=== PATIENT | female | born 1990 | race Caucasian/White ===

== ENCOUNTER 2017-06-09 10:40 | Emergency (ER) | payer OTHER ==
[2017-06-09 10:48] VITALS: BP 119/80
[2017-06-09 11:06] LABS: BASOPHILS % (AUTO) 0.5 %; EOSINOPHILS # (AUTO) 0.3 10^3/uL (0.0-0.7); EOSINOPHILS % (AUTO) 5.7 %; HCT - HEMATOCRIT 44.7 % (37.0-47.0); HGB - HEMOGLOBIN 15.5 g/dL (12.0-16.0); LYMPHOCYTES # (AUTO) 1.3 10^3/uL (1.5-3.5); LYMPHOCYTES % (AUTO) 22.5 %; MEAN CORPUSCULAR HEMOGLOBIN 32.4 pg (27.0-31.0); MEAN CORPUSCULAR HGB CONC 34.6 g/dL (32.0-36.0); MEAN CORPUSCULAR VOLUME 93.8 fL (81.0-99.0); MEAN PLATELET VOLUME 7.7 fL (7.9-10.8); MONOCYTES # (AUTO) 0.4 10^3/uL (0.0-1.0); MONOCYTES % (AUTO) 7.7 %; NEUTROPHILS # (AUTO) 3.7 10^3/uL (1.5-6.6); NEUTROPHILS % (AUTO) 63.6 %; RED BLOOD COUNT 4.77 10^6/uL (4.20-5.40); RED CELL DISTRIBUTION WIDTH 12.6 % (12.0-15.0); UNCORRECTED WHITE BLOOD COUNT 5.8 x10^3/uL; WHITE BLOOD COUNT 5.8 x10^3/uL (4.8-10.8)
[2017-06-09 11:20] LABS: ALBUMIN/GLOBULIN RATIO 1.7 (1.0-2.2); BILIRUBIN,TOTAL 1.5 mg/dL (0.2-1.0); CALCIUM 9.5 mg/dL (8.5-10.3); CREATININE 0.6 mg/dL (0.4-1.0); POTASSIUM 3.7 mmol/L (3.5-5.0); TOTAL PROTEIN 7.5 g/dL (6.7-8.2)
--- NOTE | 2017-06-09 11:27 | ED Physician Documentation ---
History of Present Illness - Stated complaint Stated Complaint: BLEEDING, 5 WEEKS - Chief complaint Chief Complaint: General - Additonal information Additional information: hx from pt EGA 5-6 weeks spotting for a week heavy dark bleeding today no pads or tampons with her so using tissue so cant quantify volume of blood no pain not weak or dizzy no trauma, sexual injury Review of Systems GI: denies: Abdominal Pain : reports: Vaginal bleeding, Now EGA PD PAST MEDICAL HISTORY - Past Medical History Past Medical History: Yes Psych: Other Other Past Medical History: post depression - Past Surgical History Past Surgical History: Yes General: Appendectomy - Present Medications Home Medications: Ambulatory Orders Medication Instructions Recorded Confirmed Cetirizine [ZyrTEC] 10 mg ORAL PRN PRN 06/09/17 06/09/17 Cja011/FA/Omega3/Dha/Fish Oil 1 tab ORAL DAILY 06/09/17 06/09/17 [ Gummies] - Allergies Allergies/Adverse Reactions: Allergies Allergy/AdvReac Type Severity Reaction Status Date / Time No Known Drug Allergies Allergy Verified 06/09/17 10:47 - Social History Does the pt smoke?: No Smoking Status: Never smoker Does the pt drink ETOH?: No Does the pt have substance abuse?: No - Immunizations Immunizations are current?: Yes - POLST Patient has POLST: No PD ED PE NORMAL - Vitals Vital signs reviewed: Yes - General General: Alert and oriented X 3 - Cardiac Cardiac: RRR - Respiratory Respiratory: No respiratory distress - Abdomen Abdomen: Soft, Non tender - Female Female : Aircraft Navigator present (nurse Nanci), Other (cervix closed, dark blood and small clear mucous from os, no purulent dc, no CMT, cx taken) Results - Vitals Vitals: Vital Signs - 24 hr 06/09/17 10:43 Temperature 36.3 C L Heart Rate 84 Respiratory 18 Rate Blood Pressure 119/80 O2 Saturation 100 Oxygen O2 Source Room air - Labs Labs: Laboratory Tests 06/09/17 06/09/17 06/09/17 11:00 11:00 11:00 WBC 5.8 RBC 4.77 Hgb 15.5 Hct 44.7 MCV 93.8 MCH 32.4 H MCHC 34.6 RDW 12.6 Plt Count 231 MPV 7.7 L Neut # 3.7 Lymph # 1.3 L [place] # 0.4 Eos # 0.3 Baso # 0.0 Absolute Nucleated RBC 0.00 Nucleated RBC % 0.0 Sodium 139 Potassium 3.7 Chloride 103 Carbon Dioxide 25 Anion Gap 11.0 BUN 9 Creatinine 0.6 Estimated GFR (MDRD) 122 Glucose 94 Calcium 9.5 Total Bilirubin 1.5 H AST 20 ALT 15 Alkaline Phosphatase 39 L Total Protein 7.5 Albumin 4.7 Globulin 2.8 Albumin/Globulin Ratio 1.7 Lipase 27 HCG, Quant 1627.00 Blood Type 06/09/17 11:00 WBC RBC Hgb Hct MCV MCH MCHC RDW Plt Count MPV Neut # Lymph # [place] # Eos # Baso # Absolute Nucleated RBC Nucleated RBC % Sodium Potassium Chloride Carbon Dioxide Anion Gap BUN Creatinine Estimated GFR (MDRD) Glucose Calcium Total Bilirubin AST ALT Alkaline Phosphatase Total Protein Albumin Globulin Albumin/Globulin Ratio Lipase HCG, Quant Blood Type A POSITIVE - Rads (name of study) OB sono with TV Radiology: See rad report (no IUP or extrauterine pregn seen, nl ovarian, no adnexal mass, small FF) Departure - Departure Disposition: 01 Home, Self Care Clinical Impression: Threatened in early Condition: Good Instructions: ED Miscarriage Poss Comments: Your quantitative HCG level was 1,627 (so still very early ) The ultrasound was not able to visualize the at this early stage So unfortunately there is no way to know right now if this bleeding might be a miscarriage The next step is to have a repeat quantitative HCG level in 3 days - in a normal healthy the level should double, in a miscarriage it will be falling. Since you will be travelling on Tuesday, and don't have a PMD or OB yet back in [place], you can come back to the ER to get the level redrawn on Tuesday - it might be very busy that day because it is a holiday weekend so please be prepared to wait if needed It is also rare but possible to have a that implanted outside the uterus called an ectopic - this can be very dangerous because it can rupture and cause you to bleed internally - if at any point between now and when you get seen again in three days you have severe pain, heavier bleeding or feel faint you need to come straight back to the ER Your blood type is A +
--- NOTE | 2017-06-09 13:34 | Ultrasound Preliminary Report ---
Exam: US OB FIRST TRIMESTER IMPRESSION: 1. No evidence of intrauterine visible by ultrasound at this time. The differential diagnos is would include blighted ovum, very early intrauterine which is too early to visualize by ultrasound, and ectopic . 2. No adnexal mass. Ovaries appear normal. Small free fluid in the pelvis. [facility] SITE ID: [id number]
--- NOTE | 2017-06-09 13:37 | Ultrasound Report ---
REVISED: REPORT ORIG. SIGNED 06/09/2017@1337; ORDERS LINKED 06/14/2017 jll EXAM: FIRST TRIMESTER OBSTETRIC ULTRASOUND (Less than 11 weeks) EXAM DATE: 06/09/2017 01:18 PM. CLINICAL HISTORY: EGA 5-6 weeks, vag bleed. LMP: 04/30/2017. COMPARISONS: None. TECHNIQUE: Transabdominal and transvaginal ultrasound examination with static image documentation. CLINICAL DATES: EGA 5 weeks 5 days with OSEI 02/04/2018 based on LMP. ASSESSMENT No intrauterine gestational sac or findings of intrauterine visualized. The endometrium appears echogenic and measures 9.7 mm in thickness. MATERNAL STRUCTURES Uterus: Anteverted/Retroverted. Unremarkable. Cervix: Closed. Right Ovary/Adnexa: Unremarkable. The ovary measures 2.7 x 1.9 x 2.3 cm, volume 6.1 cc. Left Ovary/Adnexa: Unremarkable. The ovary measures 2.8 x 1.9 x 1.9 cm, volume 5.2 cc. Free Fluid: Small. Other: None. IMPRESSION 1. No evidence of intrauterine visible by ultrasound at this time. The differential diagnosis would include blighted ovum, very early intrauterine which is too early to visualize by ultrasound, and ectopic . 2. No adnexal mass. Ovaries appear normal. Small free fluid in the pelvis. [facility] Referring Provider Line: [phone] SITE ID: [id number]
== END 2017-06-09 14:19 | disposition home or self-care (01) ==
LOC: ED 10:40
DX: O20.0 Threatened abortion (principal); Z3A.01 Less than 8 weeks gestation of pregnancy
CPT/HCPCS: 36415; 76801; 76817; 80053; 83690; 84702; 85025; 86900; 86901; 87491; 87591; 99283; 99284